=== PATIENT | male | born 1975 | race Caucasian/White ===

== ENCOUNTER → 2016-09-21 | Outpatient (CLI) | payer MEDICARE, MEDICAID | LOC: BHSO 10:44 | DX: F20.9 Schizophrenia, unspecified (principal) | CPT/HCPCS: 90791-AI ==

== ENCOUNTER → 2016-10-01 | Outpatient (CLI) | payer MEDICARE, MEDICAID | LOC: BHSO 15:13 | DX: F20.9 Schizophrenia, unspecified (principal) ==

== ENCOUNTER → 2016-10-22 | Outpatient (CLI) | payer MEDICARE, MEDICAID | LOC: BHSO 09:25 | DX: F20.9 Schizophrenia, unspecified (principal) ==

== ENCOUNTER → 2016-12-03 | Outpatient (CLI) | payer MEDICARE, MEDICAID | LOC: BHSO 10:07 | DX: F20.9 Schizophrenia, unspecified (principal) ==